=== PATIENT | female | born 1960 | race Caucasian/White ===

== ENCOUNTER 2018-11-12 05:36 | Day surgery (SDC) | payer BC, OTHER ==
[2018-11-09 09:13] LABS: HEMATOCRIT 36.6 % (37.0-47.0); HEMOGLOBIN 12.3 gm/dL (12.0-15.0); MCH 32.1 pg (26.0-34.0); MCHC 33.6 g/dL (28.0-37.0); MCV 95.6 fL (80.0-100.0); RBC 3.83 mil/uL (4.20-5.00); RDW 13.2 % (10.5-14.5); WBC 4.7 thou/uL (4.0-11.0)
[2018-11-09 09:18] LABS: URINE BILIRUBIN NEGATIVE (Negative); URINE BLOOD NEGATIVE (Negative); URINE CLARITY CLEAR; URINE COLOR YELLOW; URINE GLUCOSE-RANDOM* NEGATIVE (Negative); URINE KETONES NEGATIVE (Negative); URINE LEUKOCYTES-REFLEX NEGATIVE (Negative); URINE NITRITE-REFLEX NEGATIVE (Negative); URINE PROTEIN (DIPSTICK) NEGATIVE (Negative); URINE SPECIFIC GRAVITY <= 1.005 (1.005-1.035); URINE UROBILINOGEN 0.2 E.U./dl (0.2-1.0)
[2018-11-09 09:21] LABS: ALBUMIN 3.9 g/dL (3.4-5.0); CALCIUM 9.3 mg/dL (8.5-10.1); CREATININE 0.6 mg/dL (0.6-1.0); POTASSIUM 4.3 mmol/L (3.5-5.1)
[2018-11-09 09:25] LABS: PROTIME 9.7 Seconds (9.3-11.4)
--- NOTE | 2018-11-10 16:54 | EKG ---
[place] [address] [facility] [place] [address] ELECTROCARDIOGRAM REPORT Name: JUSTIN SPARKS Room #: [facility].R.#: [id number] ������������������ Admission: ������������������ Attend Phys: Gustabo Dior MD Discharge: ������������������ Date of : 58 Report #: [id number] ����������������������������������������������������������������� [id number] THIS REPORT FOR: //name// [facility] Test Date: 2018-11-09 Test Time: 08:54:50 Pat Name: JUSTIN SPARKS Department: Room: Gender: F Load Dropper: cheryl : 1960 Requested By: Gustabo Dior Order Number: [id number] MD: Emir Gauthier Measurements Intervals [place] Rate: 70 P: 19 AR: 145 QRS: -6 QRSD: 108 T: 14 QT: 408 QTc: 441 Interpretive Statements Sinus rhythm Abnormal R-wave progression, early transition No previous ECG available for comparison Electronically Signed On 11-10-2018 16:53:58 CDT by Emir Gauthier [email or web address] ��������������������������������������������� <ELECTRONICALLY SIGNED> ���������������������������������������� By: Emir Gauthier MD, [facility] ��������������������������������������������� 11/10/18 [id number] [id number] Emir Gauthier MD, FAC /EPI
[~2018-11-12] VITALS: Ht 170.2 cm; Wt 108.4 kg
[~2018-11-12 05:36] MED LIST: CENTRUM SILVER1 EAC4 PO; MSM1000 MG PO
[2018-11-12 06:59] VITALS: BP 99/46
[2018-11-12 11:32] VITALS: BP 116/59
[2018-11-12 16:34] VITALS: BP 124/63
[2018-11-12 19:21] VITALS: BP 115/59
--- NOTE | 2018-11-13 04:53 | NUR ---
ASSUMED PT CARE 1899. PT ALERT AND ORIENTED. REASSESSMENT COMPLETE. VSS. NANCY INTACT. IV DRESSING C/D/I, NO SIGNS OF INFILTRATION. PT DENIES N/V, REPORTS PAIN, SEE EMAR. PT CALL LIGHT WITHIN REACH, WILL CONTINUE POC UNTIL EOS.
[2018-11-13 05:00] VITALS: BP 91/35
[2018-11-13 05:04] LABS: HEMATOCRIT 29.5 % (37.0-47.0); HEMOGLOBIN 10.1 gm/dL (12.0-15.0); MCH 32.7 pg (26.0-34.0); MCHC 34.3 g/dL (28.0-37.0); MCV 95.3 fL (80.0-100.0); RBC 3.09 mil/uL (4.20-5.00); WBC 13.3 thou/uL (4.0-11.0)
[2018-11-13 07:45] VITALS: BP 94/37
--- NOTE | 2018-11-13 15:28 | NUR ---
INITIAL ASSESSMENT: Pt evaluated for d/c planning needs. Reviewed chart and spoke with nurse, pt and spouse. Pt is alert and oriented. Pt lives in house with spouse and was independent with ADL's prior to admission to the hospital. Pt has walker, cane and CPAP at home. Pt has not had home health in the past. Pt has scheduled outpatient PT to begin on Friday. No d/c needs indicated.
[2018-11-13 15:50] VITALS: BP 94/37
--- NOTE | 2018-11-13 17:00 | NUR ---
ASSUMED CARE OF PT AT 0700. ASSESSMENT COMPLETED. A&O,X4. C/O LEFT KNEE PAIN, PAIN MEDS GIVEN ORDERED. NANCY DRESSING INTACT AND FOUR SUTURES NOTED, DRESSING C/D/I. LEFT LEG EDEMA. PULSES INTACT. DEMETRIUS HOSE IN PLACE RIGHT LEG. ROOM AIR. PT WALKED WITH P.T. NEW DISCHARGE ORDERS. SCRIPTS GIVEN TO PATIENT POST OP. AT BEDSIDE TO TAKE PT HOME. IV REMOVED, NO BLEEDING. PT LEFT IN STABLE CONDITION VIA WHEELCHAIR AT 16:30.
--- NOTE | 2018-11-15 08:12 | O ---
[facility] [place] [address] OPERATIVE REPORT Name: JUSTIN SPARKS Room #: [facility] M.Reji.#: [id number] Admission: 11/12/18 ������������������ Attend Phys: Gustabo Dior MD Discharge: 11/13/18 ������������������ Date of : 58 Report #: [id number] THIS REPORT FOR: //name// CC: Sherry Dior DATE OF SERVICE: 11/12/2018 PREOPERATIVE DIAGNOSIS: Left knee osteoarthritis. POSTOPERATIVE DIAGNOSIS: Left knee osteoarthritis. PROCEDURE: Left total knee arthroplasty using Navio robotic public health training assistant. SURGEON: Gustabo Dior MD. DOCUMENT MANAGER: Rody Carrington PA-C INDICATION FOR DOCUMENT MANAGER: Throughout the case, extensive retraction and manipulation of the knee was required. This was afforded to me by my public health training assistant. ANESTHESIA: LMA with an adductor canal block. IMPLANTS: [employer] size 6 Journey II BCS Oxinium femur, size 3 tibia, size 9 polyethylene and size 32 patella. TOURNIQUET TIME: 66 minutes. ESTIMATED BLOOD LOSS: 25 mL. COMPLICATIONS: None. SPECIMENS: None. CONDITION UPON LEAVING THE OPERATING ROOM: Stable. INDICATIONS FOR PROCEDURE: The patient is a 58-year-old female with severe left knee osteoarthritis. She had failed conservative measures for this and after discussion with her, she elected for left total knee arthroplasty. DESCRIPTION OF PROCEDURE: Risks, benefits, alternatives, complications were discussed in detail with the patient including but not limited to risk of anesthesia, risk of damage to nerves, arteries, blood vessels, risk for infection, bleeding, risk for continued knee pain, need for reoperation, informed consent was obtained from the patient. Left knee was appropriately marked in the preoperative holding area. IV Ancef was given for preoperative [facility] [address] [place] [address] OPERATIVE REPORT Name: SPARKSMAMEJUSTIN R Room #: [facility] Angie#: [id number] Admission: 11/12/18 ������������������ Attend Phys: Gustabo Dior MD Discharge: 11/13/18 ������������������ Date of : 58 Report #: [id number] antibiotics. She was brought to the operating room and placed in supine position on operating room table. IV Ancef was given for preoperative antibiotics. LMA anesthesia was induced without complication. Tourniquet was placed on the left thigh. Left lower extremity was prepped and draped in normal sterile fashion. Timeout was performed properly identifying the patient and procedure as well as instrumentation. All in the operating room were in agreement. Left lower extremity was exsanguinated, tourniquet was inflated. Tourniquet time was 66 minutes. Standard midline approach to knee was made with 10 blade through the skin. Dissection was taken down sharply to the fascia and deep flaps were developed medially and laterally. Fresh 10 blade was used to make a medial parapatellar arthrotomy, and the knee was inspected. There was severe tricompartmental osteoarthritis. ACL and PCL were removed sharply. Reference pins were placed in the femur and the tibia and the knee was digitally mapped using the Navio system. We sized a size 6 femur, a size 4 tibia, with a size 10 spacer. After acceptance of the intraoperative plan, the distal femoral cut was made with a Navio bur. The size 6 femoral cutting block was pinned in place and the femoral cuts were made. Attention was turned to the tibia. Remainder of the meniscus were removed with Bovie cautery and tibial resection guide was pinned in place using the Navio system for placement. Tibial resection was made. After this, flexion and extension gaps were checked and found to be with a slight tightness medially in extension. Medial osteophytes were removed from the tibia and a limited medial release was performed using the pie crust technique. This balanced the knee well. Tibia was then sized, found to be a size 3. Size 3 tibial trial was placed, pinned and punched. A size 6 femoral trial was placed and the box cut was made. This was then trialed with a size 9 polyethylene. Knee was taken through range of motion, found to be stable, found to have good balance in flexion and extension with 1.5 mm of laxity throughout range of motion, both manually as well as digitally. After this, 9 mm was taken off the posterior surface of the patella and a size 32 patellar trial was placed. Knee was taken through range of motion, found to be stable, found to have good patellar tracking. Trial components were removed. Bony ends were thoroughly irrigated with normal saline. A final size 3 tibia, size 6 Journey II BCS Oxinium femur and a size 32 patella were cemented in place using standard cementation techniques. While the cement cured, periarticular injection consisting of morphine, ropivacaine, epinephrine, Toradol placed around the knee joint capsule. After the cement cured, the tourniquet was deflated. Hemostasis was obtained with Bovie cautery. A final size 9 polyethylene was placed and a gram of vancomycin was placed deep in the joint. Fascia was closed with 0 Vicryl, skin was closed with 2-0 Vicryl, 3-0 Monocryl. Dermabond and a NANCY dressing were applied. The patient tolerated this procedure well and went to the recovery room under the care of Anesthesia postoperatively. ��������������������������������������������� <ELECTRONICALLY SIGNED> ���������������������������������������� By: Gustabo Dior MD ��������������������������������������������� 11/15/18 0812 0940 Tami Dior MD /bola
== END 2018-11-13 16:31 | disposition home or self-care (01) ==
LOC: OR 05:36 → TBA 05:37 → OR 05:37 → 4E 11:08 → OR 12:21 → ENTRNSPT 11-13 16:25 → OR 11-13 16:31
PROVIDERS: Orthopaedic Surgery
DX: M17.12 Unilateral primary osteoarthritis, left knee (principal); G47.33 Obstructive sleep apnea (adult) (pediatric); Z87.891 Personal history of nicotine dependence; Z90.49 Acquired absence of other specified parts of digestive tract; Z98.890 Other specified postprocedural states; Z98.51 Tubal ligation status; Z79.899 Other long term (current) drug therapy; Z88.8 Allergy status to other drugs, medicaments and biological substances
CPT/HCPCS: 10783; 50010; 50101; 50415; 50954; 51130; 51225; 53000; 53078; 54118; 55372; 56527; 56528; 57095; 57103; 57110; 57127; 57180; 62110; 62900; 64043; 65060; 70005